=== PATIENT | male | born 1960 | race Caucasian/White ===

== ENCOUNTER 2020-10-26 12:49 | Emergency (ER) | payer OTHER ==
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
== END 2020-10-26 13:37 | disposition home or self-care (01) ==
LOC: MADERS 12:49
DX: S20.211A Contusion of right front wall of thorax, initial encounter (principal); S50.811A Abrasion of right forearm, initial encounter; S60.512A Abrasion of left hand, initial encounter; J30.2 Other seasonal allergic rhinitis; V47.5XXA Car driver injured in collision with fixed or stationary object in traffic accident, initial encounter

== ENCOUNTER 2023-02-21 14:02 | Emergency (ER) | payer SELFPAY | END 2023-02-21 15:54 | disposition home or self-care (01) | LOC: MADERS 14:02 | DX: S39.91XA Unspecified injury of abdomen, initial encounter (principal); Y04.8XXA Assault by other bodily force, initial encounter | CPT/HCPCS: 99283 ==

== ENCOUNTER 2025-10-12 15:37 | Emergency (ER) | payer OTHER ==
[2025-10-12 16:18] LABS: Cocaine Metabolite Screen Negative (Negative); THC/Cannabinoid Screen Negative (Negative); Tricyclic Screen Negative (Negative)
== END 2025-10-12 16:28 | disposition home or self-care (01) ==
LOC: MADERS 15:37
DX: Z04.1 Encounter for examination and observation following transport accident (principal)
CPT/HCPCS: 80306; 99283